=== PATIENT | female | born 1980 | race Caucasian/White ===

== ENCOUNTER 2018-02-10 08:01 | Day surgery (SDC) | payer OTHER, SELFPAY ==
[2018-02-06 15:49] VITALS: BMI 28.9
[2018-02-10] VITALS (8 sets, daily range): BP systolic 109–128; BP diastolic 66–84; PULSE 67–96; RESP 16–18; TEMP 36.2–36.8; O2SAT 93–100; BMI 28.9
--- NOTE | 2018-02-10 | PATH_ITS ---
[facility] Accession Number: [id number] . 01 Material submitted: . PART A: ENDOCERVICAL CURRETINGS PART B: ENDOMETRIAL CURRETINGS . 02 Diagnosis: A. Endocervix, Curettage: Endocervical mucosa with no evidence of neoplasia. . B. Endometrium, Biopsy: Secretory endometrium with no evidence of neoplasia or hyperplasia. Rare fragments suggestive of benign endometrial polyp are also present. I02/13/2018 . 02 Electronically signed: . Yuni Cheema MD, Pathologist NPI- [id number] . 01 Gross description: . Received two formalin-filled containers, both labeled with the patient's name: . A. In a container labeled endocervical curettings, the specimen consists of a less than 0.25 cc aggregate of mucoid material and blood, which is filtered, wrapped, and entirely submitted in cassette A. B. In a container labeled endometrial curettings, the specimen consists of approximately a 1.25 cc aggregate of mucoid material and blood, which is filtered, wrapped, and entirely submitted in cassette B. ([id number]) /FRR . 02 Pathologist provided ICD-10: N84.0 . 02 CPT . 692320, 567102 Performed at: 01 [facility] [address], [place], [place] [id number] MD Patel Garner MD Phone: [phone] Performed at: 02 [facility] [address] [place], [place] [id number] MD Ariel Ureña MD Phone: [phone]
[2018-02-10] MEDS: LACTATED RINGERS 1,000 ML 100 ML IV (09:00)
--- NOTE | 2018-02-10 09:11 | PM.PREOP ---
Pre-operative Note Interval Note Pre-op Check: Yes History & Physical Reviewed by Physician Changes: No
[2018-02-10] MEDS: CEFAZOLIN 2 GM/100 ML FROZ.PIGGY IV (09:25)
--- NOTE | 2018-02-10 09:46 | SUR.OPER ---
Lithotomy on padded OR bed, head on pillow, arms secured on padded arm boards at <90 degrees abduction. Legs secured in padded yellow fins stirrups.
[2018-02-10] MEDS: BUPIVACAINE 0.25% W/ EPI VIAL 50 ML INJ (10:07)
[2018-02-10] MEDS: fentaNYL 100 MCG/2 ML INJ 50 MCG IV ×4 (10:08→10:54)
--- NOTE | 2018-02-10 10:18 | PM.GYNOP.1 ---
Operative Date/Time/Diagnoses Date of procedure: 02/10/18 Time of procedure: 09:30 Pre-op diagnosis: Abnormal uterine bleeding, thickened endometrium Post-op diagnosis: same Procedure: Procedures Operation Date: 02/10/18 09:00 Actual Procedures Side Surgeon p Hysteroscopy D&C Smita Padron MD s Insertion of Mirena Smita Padron MD Indications: The patient is a 37-year-old 3 para 3 female here for hysteroscopy, dilation and curettage, possible polypectomy, and placement of a Mirena intrauterine device. Surgery is for evaluation and management of abnormal uterine bleeding with an ultrasound showing a thickened endometrium. Last menstrual period was 22 January, and she describes heavy cycles, during which she has to change large pads 5-6 times daily. She bleeds for 2 weeks and also has bleeding in between menses. She has severe dysmenorrhea that she describes similar to labor pains. She has always had heavy and painful menses menses, but they seem to have worsened over the past 3-4 months. She also has chronic burning lower abdominal pain over the areas of her ovaries. Pain occurs intermittently but lasts all day when present. She uses Motrin, Tylenol, and lidocaine patches to control pain. She denies any dyspareunia. Her evaluation for her bleeding consisted of a transvaginal ultrasound, which showed an endometrial stripe was 14 mm, which could be consistent with normal phase of her menstrual cycle versus polyps, hyperplasia, neoplasm, or blood. The ovaries were identified and appeared normal with the exception of a 1.3 cm ovoid cyst on the right ovary, consistent with likely a physiologic cyst. The evaluation and management options were reviewed with the patient, and following discussion, she opted to evaluate the endometrial cavity with hysteroscopy and dilatation curettage, then utilize a progestin intrauterine device for long-term management of menstrual and pelvic pain concerns. The risks, limitations, benefits, alternatives, and expectations of surgery were discussed, and the consent was reviewed and signed prior to the surgery. Surgeon: Smita Padron Anesthesia Type: General and Local (0.25 arcaine with epi) Operative Notes Findings: Exam under anesthesia: The uterus was approximately 7 weeks in size and anteverted. There are no palpable masses. Adnexa were not notably enlarged. Operative findings: The endometrial cavity overall appeared normal. The tubal ostia were seen bilaterally. There is a possible polypoid area of tissue at the left lower endometrial cavity. This was removed with dilation curettage. Closure Type: not applicable Specimen(s): endometrial curettings and other (Endocervical curettings) Applied: implant(s) (Mirena Intrauterine Device Lot # [id number], Exp date May 2020) Estimated blood loss (mL): 6 Blood products transfused: none Procedure in detail: The patient was taken to the operating room, where general anesthesia with LMA was administered without difficulty. She was then placed in the high dorsal lithotomy position with her lower extremities in Yellofin stirrups. Exam under anesthesia was then performed with the findings as noted above. Perineum and vagina were then prepped and draped in a sterile fashion, and in-and-out catheterization was performed. Procedure Time-Out was performed. A sterile bivalve speculum was then placed. The anterior lip of the cervix was then grasped with a single-toothed tenaculum. Local anesthetic using 0.25% Marcaine with epinephrine was then injected at the 2:00, 4:00, 7:00, and 10:00 positions for a paracervical block. Endocervical curettage was then performed. The cervix was then serially dilated until a 30-degree hysteroscope could be gently advanced to the uterine fundus. Using sterile saline for distention, the uterine cavity was visualized with the findings as noted above. Endometrial curettage was then performed on all 4 chapa of the uterus. A small amount of tissue was obtained and sent for pathology. The hysteroscope was then reintroduced to ensure the polypoid tissue was removed. The endometrial cavity appeared normal and free of polyps masses at that time. The hysteroscope was then removed, and the uterus was sounded to 9 cm. A Mirena intrauterine device, lot number [id number], expiration date May,, was then placed onto the field and inserted into the endometrial cavity without complications. The IUD strings were trimmed to 4 cm. The tenaculum was then removed, and the tenaculum sites hemostatic with gentle pressure with a sponge stick. At this point, the procedure was deemed complete. Sponge, lap, and needle count were correct x3. There were no complications. The patient was then taken to the recovery room in stable condition. Complications: none Post-operative Condition: stable Disposition: same day surgery Plan for aftercare: See discharge instruction.
--- NOTE | 2018-02-10 10:22 | P.OP_ITS ---
Operative Date/Time/Diagnoses Date of procedure: 02/10/18 Time of procedure: 09:30 Pre-op diagnosis: Abnormal uterine bleeding, thickened endometrium Post-op diagnosis: same Procedure: Procedures Operation Date: 02/10/18 09:00 Actual Procedures Side Surgeon p Hysteroscopy D&C Smita Padron MD s Insertion of Mirena Smita Padron MD Indications: The patient is a 37-year-old 3 para 3 female here for hysteroscopy, dilation and curettage, possible polypectomy, and placement of a Mirena intrauterine device. Surgery is for evaluation and management of abnormal uterine bleeding with an ultrasound showing a thickened endometrium. Last menstrual period was 22 January, and she describes heavy cycles, during which she has to change large pads 5-6 times daily. She bleeds for 2 weeks and also has bleeding in between menses. She has severe dysmenorrhea that she describes similar to labor pains. She has always had heavy and painful menses menses, but they seem to have worsened over the past 3-4 months. She also has chronic burning lower abdominal pain over the areas of her ovaries. Pain occurs intermittently but lasts all day when present. She uses Motrin, Tylenol, and lidocaine patches to control pain. She denies any dyspareunia. Her evaluation for her bleeding consisted of a transvaginal ultrasound, which showed an endometrial stripe was 14 mm, which could be consistent with normal phase of her menstrual cycle versus polyps, hyperplasia, neoplasm, or blood. The ovaries were identified and appeared normal with the exception of a 1.3 cm ovoid cyst on the right ovary, consistent with likely a physiologic cyst. The evaluation and management options were reviewed with the patient, and following discussion, she opted to evaluate the endometrial cavity with hysteroscopy and dilatation curettage, then utilize a progestin intrauterine device for long- term management of menstrual and pelvic pain concerns. The risks, limitations, benefits, alternatives, and expectations of surgery were discussed, and the consent was reviewed and signed prior to the surgery. Surgeon: Smita Padron Anesthesia Type: General and Local (0.25* arcaine with epi) Operative Notes Findings: Exam under anesthesia: The uterus was approximately 7 weeks in size and anteverted. There are no palpable masses. Adnexa were not notably enlarged. Operative findings: The endometrial cavity overall appeared normal. The tubal ostia were seen bilaterally. There is a possible polypoid area of tissue at the left lower endometrial cavity. This was removed with dilation curettage. Closure Type: not applicable Specimen(s): endometrial curettings and other (Endocervical curettings) Applied: implant(s) (Mirena Intrauterine Device Lot # [id number], Exp date May 2020 ) Estimated blood loss (mL): 6 Blood products transfused: none Procedure in detail: The patient was taken to the operating room, where general anesthesia with LMA was administered without difficulty. She was then placed in the high dorsal lithotomy position with her lower extremities in Yellofin stirrups. Exam under anesthesia was then performed with the findings as noted above. Perineum and vagina were then prepped and draped in a sterile fashion, and in-and-out catheterization was performed. Procedure Time-Out was performed. A sterile bivalve speculum was then placed. The anterior lip of the cervix was then grasped with a single-toothed tenaculum. Local anesthetic using 0.25% Marcaine with epinephrine was then injected at the 2:00, 4:00, 7:00, and 10:00 positions for a paracervical block. Endocervical curettage was then performed. The cervix was then serially dilated until a 30-degree hysteroscope could be gently advanced to the uterine fundus. Using sterile saline for distention, the uterine cavity was visualized with the findings as noted above. Endometrial curettage was then performed on all 4 chapa of the uterus. A small amount of tissue was obtained and sent for pathology. The hysteroscope was then reintroduced to ensure the polypoid tissue was removed. The endometrial cavity appeared normal and free of polyps masses at that time. The hysteroscope was then removed, and the uterus was sounded to 9 cm. A Mirena intrauterine device, lot number [id number], expiration date May,, was then placed onto the field and inserted into the endometrial cavity without complications. The IUD strings were trimmed to 4 cm. The tenaculum was then removed, and the tenaculum sites hemostatic with gentle pressure with a sponge stick. At this point, the procedure was deemed complete. Sponge, lap, and needle count were correct x3. There were no complications. The patient was then taken to the recovery room in stable condition. Complications: none Post-operative Condition: stable Disposition: same day surgery Plan for aftercare: See discharge instruction.
[2018-02-10] MEDS: OXYCODONE/ACETAMINOPHEN 5/325 TABLET 1 TAB PO (10:39)
== END 2018-02-10 11:40 | disposition home or self-care (01) ==
PROVIDERS: Visit Provider Obstetrics & Gynecology
PROC: 0UDB8ZZ Extraction of Endometrium, Via Natural or Artificial Opening Endoscopic (ICD-10-PCS; CPT 58558; principal; 2018-02-10 09:00)
PROC: (CPT 58558; 2018-02-10 09:00)
DX: N84.0 Polyp of corpus uteri (principal); N85.00 Endometrial hyperplasia, unspecified; Z30.430 Encounter for insertion of intrauterine contraceptive device
CPT/HCPCS: 58558; 58300; 88305; J0690; J1100; J2250; J2405; J2704; J3010

== ENCOUNTER 2018-05-18 12:19 | Emergency (ER) | payer OTHER, SELFPAY ==
[2018-05-18 12:31] VITALS: BP 132/84; PULSE 82; RESP 16; TEMP 36.8; O2SAT 100; BMI 29.2
--- NOTE | 2018-05-18 12:44 | DI.CT.S_ITS ---
PROCEDURE: CT MASTOID TEMPORAL INDICATIONS: pain over right mastoid, failed ABX tx, sent by COMPARISON: None. TECHNIQUE: Noncontrast 0.6 mm thick direct axial and coronal sections acquired through each temporal bone separately. FINDINGS: Image quality: Excellent. RIGHT: There is soft tissue layering debris along the posterior inferior aspect of the middle ear region layering in the length along the postsurgical defect of the mastoid air cells. The tympanic membrane is not visualized in its typical location. There is a serpiginous focus of linear soft tissue density identified somewhat inferior and posterior to the expected location. Soft tissue is present surrounding the ossicles. The ossicles appear poorly defined and likely demonstrate areas of erosion. There is a mildly blunted appearance of the scutum. Post surgical changes are present within the right mastoid air cells. Very minimal residual cells are opacified and sclerotic. LEFT: External auditory canal: Canal has a normal appearance. Middle ear: There is a mild appearance of soft tissue density adjacent to the ossicles within the epi tympanum. Morphology of the ossicles appears unremarkable. Tympanic membrane is of normal thickness. No definitive blunting of the scutum. Inner ear: Inner ear is normally formed and appears unremarkable. Facial nerve appears normal throughout its course. Mastoids: Mastoid air cells demonstrate sclerosis and opacification, as well as a suspected appearance of prior surgery. MISCELLANEOUS: Visualized surrounding bones appear unremarkable. Visualized intracranial structures, including the cerebellopontine angle cisterns, appear normal. There are prominent mucous retention cyst versus polyps partially visualized within the maxillary sinuses bilaterally. IMPRESSION: 1. There is soft tissue density along the posterior inferior aspect of the middle ear region, layering along the postsurgical defect of the mastoid air cells. While the tympanic membrane is not well visualized in the expected location, there is an adjacent area of serpiginous soft tissue and fluid, suspected to represent a ruptured tympanic membrane. 2. Extensive soft tissue density within the right epitympanum surrounding the ossicles with ill-defined ossicular morphology. While this could represent postoperative cellular debris, cholesteatoma cannot be excluded. 3. Mild appearance of soft tissue density without loss of ossicular morphology noted on the left. This could be sales representative malt liquors of cholesteatoma versus cellular debris. #4. Sclerotic and fluid filled appearance of the mastoid air cells. Dictated by: Angie Dawkins M.D. on 05/18/2018 at 13:34 Approved by: Angie Dawkins M.D. on 05/18/2018 at 13:57
--- NOTE | 2018-05-18 12:53 | ED_ITS ---
HPI - Ear Problem General Chief complaint: Ear Stated complaint: RT EAR INFECTION Time Seen by Provider: 05/18/18 12:30 Source: patient Mode of arrival: ambulatory Limitations: no limitations History of Present Illness HPI Narrative: 38-year-old current smoker presents with a chief complaint of right ear pain with drainage. She has had upper respiratory symptoms for the past 9 days and was seen over a week ago at another facility for right ear pain. She has an extensive ENT history with history of tympanostomy tubes, mastoid surgery and 80% hearing loss in her right ear which requires the use of hearing aids. She had had runny nose and cough and some right ear pain when she was seen. She was put on a Z-Umair to cover the possibility of otitis media. In the aftermath she developed increasing pain followed by drainage. She now has pain over her right mastoid and subjective fever. She denies any runny nose or sore throat. She has no cough. She was sent by her primary care provider for evaluation and the possibility of a CT of her mastoids and ENT consultation if needed MD Complaint: ear pain and ear discharge Location: right ear Duration: constant Severity: moderate Relieving factors: nothing Exacerbating factors: nothing Context: recent illness Discharge from ear: yes - purulent Associated symptoms ear: fever, headache and external ear tenderness Related Data Home Medications Medication Instructions Recorded Confirmed Vitamin D3 1 cap PO DAILY 05/18/18 05/18/18 iron 1 tab PO DAILY 05/18/18 05/18/18 varenicline [Chantix Starting 1 tab PO PER PKG DIR 05/18/18 05/18/18 Month Box] Previous Rx's Medication Instructions Recorded ciprofloxacin-dexamethasone 4 drop EAR-RIGHT BID #7.5 ml 05/18/18 [Ciprodex] levofloxacin [Levaquin] 500 mg PO DAILY #10 tab 05/18/18 Allergies Allergy/AdvReac Type Severity Reaction Status Date / Time Penicillins Allergy Severe Rash, Hives Verified 05/18/18 12:31 Review of Systems Review of Systems All systems reviewed & are unremarkable except as noted in HPI and below Constitutional Denies chills, Denies fever(s), Denies lethargy and Denies weakness Eyes Denies change in vision, Denies eye discharge, Denies irritation and Denies loss of vision ENT Ears, Nose, Mouth, and Throat: Denies change in voice, Reports ear discharge, Reports otalgia, Reports facial pain, Denies neck pain and Denies sore throat Cardiovascular Denies chest pain, Denies irregular heart rhythm, Denies lightheadedness, Denies palpitations, Denies dyspnea, Denies dyspnea on exertion and Denies orthopnea Respiratory Denies cough, Denies dyspnea, Denies dyspnea on exertion and Denies wheezing Gastrointestinal Gastrointestinal: Denies abdominal pain, Denies change in bowel habits, Denies diarrhea, Denies nausea and Denies vomiting Genitourinary Denies hematuria, Denies flank pain, Denies urinary incontinence and Denies urinary urgency Musculoskeletal Denies neck pain Integumentary/Breasts Denies pruritus, Denies erythema, Denies rash and Denies wounds Neurologic Denies confusion, Denies loss of vision and Denies weakness Psychiatric Denies anxiety, Denies confusion, Denies depression, Denies homicidal ideation and Denies suicidal ideation Endocrine Denies palpitations Hematologic/Lymphatic Denies easy bruising Allergic/Immunologic Denies wheezing PFSH Medical History Abnormal uterine bleeding (Acute) Chronic constipation (Acute) Depressed (Acute) Dysmenorrhea (Acute) Hearing loss (Acute) History of chemotherapy (Acute) History of methamphetamine use (Acute) History of migraine headaches (Acute) Ovarian cancer (Acute) Tobacco dependence (Acute) Surgical History H/O left knee surgery (Acute) History of tonsillectomy (Acute) History of tubal ligation (Acute) Social History household members: spouse and family Smoking Status: Current every day smoker Exam Narrative Exam Narrative: GEN: AOx3 and in mild distress, complaining of right ear pain EYES: Pupils are equal, round, and reactive to light and accommodation. Extraoccular muscles are intact bilaterally. There is no subconjunctival hemorrhage or exudate. ENT: no obvious TM rupture, drainage or purulence. No canal erythema, edema, drainage. CHEST: Lungs are clear to auscultation bilaterally and free of wheezes, rales, or rhonchi. Heart rate is regular rhythm, there are no murmurs, clicks, rubs, or gallops. There is no chest wall tenderness. ABD: Abdomen is soft and nontender. There is no guarding or rebound. Bowel sounds are normal in all 4 quadrants. There is no mass or organomegaly. EXT: Full painless ROM of all extremities with no loss of sensation or strength. SKIN: Warm, pink, and dry. No erythema or rash Initial Vital Signs Initial Vital Signs: Vital Signs Temperature 98.2 F 05/18/18 12:31 Pulse Rate 82 05/18/18 12:31 Respiratory Rate 16 05/18/18 12:31 Blood Pressure 132/84 05/18/18 12:31 Pulse Oximetry 100 05/18/18 12:31 Course Orders Ordered: ED Orders 05/18/18 12:44 CT mastoid temporal Stat Consultations Consultation #1: Discussed case with on-call ENT who has reviewed the CT images and recommend Ciprodex drops and fluoroquinolone oral. He would be happy to see the patient in follow-up but thinks that given her insurance she will need a referral. Vital Signs - 8 hr 05/18/18 12:31 05/18/18 14:53 Temperature 98.2 F Pulse Rate 82 70 Respiratory Rate 16 14 Blood Pressure 132/84 Blood Pressure [Left Arm] 132/70 Pulse Oximetry 100 99 Medical Decision Making Imaging Data Mastoid CT: Radiologist's impression: [address] [address] [address] Scan Report Signed Patient: Jayashree Lewis#: [id number] : 1980Acct:[id number] Age/Sex: 38 / FDate of Service: 05/18/18 Loc: ED Accession Number: [id number] Procedure: CT mastoid temporal Ordering Provider: Zia Michel D.O. PROCEDURE: CT MASTOID TEMPORAL INDICATIONS: pain over right mastoid, failed ABX tx, sent by COMPARISON: None. TECHNIQUE: Noncontrast 0.6 mm thick direct axial and coronal sections acquired through each temporal bone separately. FINDINGS: Image quality: Excellent. RIGHT: There is soft tissue layering debris along the posterior inferior aspect of the middle ear region layering in the length along the postsurgical defect of the mastoid air cells. The tympanic membrane is not visualized in its typical location. There is a serpiginous focus of linear soft tissue density identified somewhat inferior and posterior to the expected location. Soft tissue is present surrounding the ossicles. The ossicles appear poorly defined and likely demonstrate areas of erosion. There is a mildly blunted appearance of the scutum. Post surgical changes are present within the right mastoid air cells. Very minimal residual cells are opacified and sclerotic. LEFT: External auditory canal: Canal has a normal appearance. Middle ear: There is a mild appearance of soft tissue density adjacent to the ossicles within the epi tympanum. Morphology of the ossicles appears unremarkable. Tympanic membrane is of normal thickness. No definitive blunting of the scutum. Inner ear: Inner ear is normally formed and appears unremarkable. Facial nerve appears normal throughout its course. Mastoids: Mastoid air cells demonstrate sclerosis and opacification, as well as a suspected appearance of prior surgery. MISCELLANEOUS: Visualized surrounding bones appear unremarkable. Visualized intracranial structures, including the cerebellopontine angle cisterns, appear normal. There are prominent mucous retention cyst versus polyps partially visualized within the maxillary sinuses bilaterally. IMPRESSION: 1. There is soft tissue density along the posterior inferior aspect of the middle ear region, layering along the postsurgical defect of the mastoid air cells. While the tympanic membrane is not well visualized in the expected location, there is an adjacent area of serpiginous soft tissue and fluid, suspected to represent a ruptured tympanic membrane. 2. Extensive soft tissue density within the right epitympanum surrounding the ossicles with ill-defined ossicular morphology. While this could represent postoperative cellular debris, cholesteatoma cannot be excluded. 3. Mild appearance of soft tissue density without loss of ossicular morphology noted on the left. This could be business services sales representative of cholesteatoma versus cellular debris. #4. Sclerotic and fluid filled appearance of the mastoid air cells. Dictated by: Angie Dawkins M.D. on 05/18/2018 at 13:34 Approved by: Angie Dawkins M.D. on 05/18/2018 at 13:57 Discharge Plan Departure Patient Disposition: Home Clinical Impression: Acute mastoiditis Discharge Date/Time: 05/18/18 14:54 Interventions: ED Discharge Assessment Last Done: 05/18/18 14:54 Instructions: DI for Mastoiditis-Adult Activity Restrictions/Additional Instructions: *You have been diagnosed with [ acute right mastoiditis ] *What to do: *Take medications as directed *Follow up with Dr. Cabello with ear nose and throat, call for an appointment. Let them know you were seen in the Emergency Department and that we ask that you be seen in follow up. You may need a referral from your primary care provider *Return to ER if you should have any new, worsening or concerning symptoms Prescriptions: New levofloxacin [Levaquin] 500 mg tablet 500 mg PO DAILY Qty: 10 RF: 0 ciprofloxacin-dexamethasone [Ciprodex] 0.3-0.1 % drops,suspension 4 drop EAR-RIGHT BID Qty: 7.5 RF: 0 No Action varenicline [Chantix Starting Month Box] 0.5 mg (11)- 1 mg (42) Tablets,Dose Pack 1 tab PO PER PKG DIR RF: 0 Vitamin D3 1 cap PO DAILY RF: 0 iron 1 tab PO DAILY RF: 0 Referrals: Hernán Cabello MD [Physician] - Falguni Chavarria DO [Primary Care Provider] -
[2018-05-18 14:53] VITALS: BP 132/70; PULSE 70; RESP 14; O2SAT 99
== END 2018-05-18 14:54 | disposition home or self-care (01) ==
PROVIDERS: Emergency Provider Emergency Medicine; PCP Family Medicine
DX: H70.001 Acute mastoiditis without complications, right ear (principal)
CPT/HCPCS: 70480; 99282; 99283

== ENCOUNTER 2019-05-17 17:44 | Emergency (ER) | payer OTHER, SELFPAY ==
[2019-05-17 18:02] VITALS: BP 134/83; PULSE 81; RESP 15; TEMP 36.4; O2SAT 99; BMI 30.9
--- NOTE | 2019-05-17 18:29 | ED.UPPEXIN ---
HPI - Extremity Injury (Upper) General Chief Complaint: Extremity Injury, Upper Stated Complaint: Right shoulder pain since Aug Time Seen by Provider: 05/17/19 18:21 Source: patient Mode of arrival: Ambulatory Limitations: no limitations History of Present Illness HPI narrative: 39F former smoker presents with family for evaluation of ongoing right shoulder pain. She has been having this pain ever since August. She denies any new injury. She has pain with range of motion and improvement with rest. She denies any numbness, tingling or weakness. She has had x-rays which demonstrated no fracture. She has not had an MRI or any physical therapy. MD complaint: injury to: right Onset (ago): month(s) Other injuries: none Handedness: right Severity: moderate Relieving factors: rest Exacerbating factors: movement of extremity Associated symptoms: denies other symptoms Treatments prior to arrival: NSAIDS Related Data Home Medications Medication Instructions Recorded Confirmed Vitamin D3 1 cap PO DAILY 05/18/18 05/18/18 iron 1 tab PO DAILY 05/18/18 05/18/18 varenicline [Chantix Starting 1 tab PO PER PKG DIR 05/18/18 05/18/18 Month Box] Previous Rx's Medication Instructions Recorded ciprofloxacin-dexamethasone 4 drop EAR-RIGHT BID #7.5 ml 05/18/18 [Ciprodex] levofloxacin [Levaquin] 500 mg PO DAILY #10 tab 05/18/18 ketorolac 10 mg PO TID PRN #15 tab 05/17/19 Allergies Allergy/AdvReac Type Severity Reaction Status Date / Time Penicillins Allergy Severe Rash, Hives Verified 05/17/19 17:58 Review of Systems Constitutional Constitutional: Denies chills, Denies fatigue, Denies fever(s), Denies frequent falls, Denies lethargy and Denies weakness Eyes Eyes: Denies change in vision, Denies eye discharge, Denies irritation and Denies loss of vision ENT Ears, Nose, Mouth, and Throat: Denies change in voice, Denies dizziness, Denies neck pain, Denies sore throat and Denies throat swelling Cardiovascular Cardiovascular: Denies chest pain, Denies irregular heart rhythm, Denies lightheadedness, Denies palpitations, Denies dyspnea, Denies dyspnea on exertion and Denies orthopnea Respiratory Respiratory: Denies cough, Denies dyspnea, Denies dyspnea on exertion and Denies wheezing Gastrointestinal Gastrointestinal: Denies abdominal pain, Denies change in bowel habits, Denies diarrhea, Denies nausea and Denies vomiting Genitourinary Genitourinary: Denies hematuria, Denies flank pain, Denies urinary incontinence and Denies urinary urgency Musculoskeletal Musculoskeletal: Denies back pain, Reports limited range of motion, Denies muscle weakness, Denies neck pain, Denies numbness and Denies tingling Integumentary/Breasts Skin/Breast: Denies pruritus, Denies erythema, Denies rash and Denies wounds Neurologic Neurologic: Denies behavioral changes, Denies confusion, Denies dizziness, Denies frequent falls, Denies loss of vision, Denies numbness, Denies tingling and Denies weakness Psychiatric Psychiatric: Denies anxiety, Denies behavioral changes, Denies confusion, Denies depression, Denies homicidal ideation and Denies suicidal ideation Endocrine Endocrine: Denies fatigue, Denies flushing and Denies palpitations Hematologic/Lymphatic Hematologic/Lymphatic: Denies easy bruising Allergic/Immunologic Allergic/Immunologic: Denies urticaria, Denies throat swelling and Denies wheezing Patient History Medical History Abnormal uterine bleeding (Acute) Chronic constipation (Acute) Depressed (Acute) Dysmenorrhea (Acute) Hearing loss (Acute) History of chemotherapy (Acute) History of methamphetamine use (Acute) History of migraine headaches (Acute) Ovarian cancer (Acute) Tobacco dependence (Acute) Surgical History H/O left knee surgery (Acute) History of tonsillectomy (Acute) History of tubal ligation (Acute) Social History household members: spouse and family Smoking Status: Current every day smoker Exam Narrative Exam Narrative: GEN: AOx3 and in mild distress EYES: Pupils are equal, round, and reactive to light and accommodation. Extraoccular muscles are intact bilaterally. There is no subconjunctival hemorrhage or exudate. CHEST: Lungs are clear to auscultation bilaterally and free of wheezes, rales, or rhonchi. Heart rate is regular rhythm, there are no murmurs, clicks, rubs, or gallops. There is no chest wall tenderness. ABD: Abdomen is soft and nontender. There is no guarding or rebound. Bowel sounds are normal in all 4 quadrants. There is no mass or organomegaly. EXT: Full but painful range of motion of the right shoulder. Full strength and no numbness, tingling or weakness SKIN: Warm, pink, and dry. No erythema or rash Initial Vital Signs Initial Vital Signs: Vital Signs Temperature 97.5 F L 05/17/19 18:02 Pulse Rate 81 05/17/19 18:02 Respiratory Rate 15 05/17/19 18:02 Blood Pressure 134/83 05/17/19 18:02 Pulse Oximetry 99 05/17/19 18:02 Procedures Orthopedic Splinting/Casting Injury #1: Side: right Upper Extremity Injury Location: shoulder Upper Extremity Immobilizer: sling/shoulder immobilizer Post splinting neuro exam: intact Post splinting vascular exam: intact Placed by: Nursing Course Vital Signs Vital signs: Vital Signs - 8 hr 05/17/19 18:02 Temperature 97.5 F L Pulse Rate 81 Respiratory Rate 15 Blood Pressure 134/83 Pulse Oximetry 99 MDM - Extremity Injury (Upper) MDM Narrative Medical decision making narrative: Given chronicity of pain and no new injury nor indication of neurologic dysfunction there is no indication for imaging. Very low suspicion for bony abnormality, is most likely rotator cuff or labral injury. Discharge Plan Departure Patient Disposition: Home Clinical Impression: Injury of Upper Extremity Qualifiers: Encounter type: initial encounter Laterality: right Qualified Code(s): S49.91XA - Unspecified injury of right shoulder and upper arm, initial encounter Discharge Date/Time: 05/17/19 19:06 Activity Restrictions/Additional Instructions: *You have been diagnosed with [ Chronic Right Shoulder Pain ] *What to do: *Take medications as directed: do not combine this Toradol with other NSAIDs like motrin or alleve *Follow up with your primary care provider in 2-3 days, call for an appointment. Let them know you were seen in the Emergency Department and that we ask that you be seen in follow up. You will likely need an MRI or physical therapy. *Return to ER if you should have any new, worsening or concerning symptoms Prescriptions: New ketorolac 10 mg tablet 10 mg PO TID PRN (Reason: pain) Qty: 15 RF: 0 No Action varenicline [Chantix Starting Month Box] 0.5 mg (11)- 1 mg (42) Tablets,Dose Pack 1 tab PO PER PKG DIR RF: 0 Vitamin D3 1 cap PO DAILY RF: 0 iron 1 tab PO DAILY RF: 0 levofloxacin [Levaquin] 500 mg tablet 500 mg PO DAILY Qty: 10 RF: 0 ciprofloxacin-dexamethasone [Ciprodex] 0.3-0.1 % drops,suspension 4 drop EAR-RIGHT BID Qty: 7.5 RF: 0 Referrals: Falguni Chavarria DO [Primary Care Provider] -
--- NOTE | 2019-05-17 18:41 | PC.NURSE ---
right arm, posterior unable to reach scapular, ?rotator cuff injury.
== END 2019-05-17 19:06 | disposition home or self-care (01) ==
PROVIDERS: Emergency Provider Emergency Medicine; PCP Family Medicine
DX: S49.91XA Unspecified injury of right shoulder and upper arm, initial encounter (principal)
CPT/HCPCS: 99282

== ENCOUNTER 2020-08-16 12:49 | Emergency (ER) | payer OTHER, SELFPAY ==
[2020-08-16 12:50] VITALS: BP 132/100; PULSE 108; RESP 14; TEMP 36.6; O2SAT 99; BMI 29.6
--- NOTE | 2020-08-16 12:59 | ED.GENADULT ---
HPI - General Adult General Chief complaint: Ear Stated complaint: infection in hearing aide implant Time Seen by Provider: 08/16/20 12:51 Source: patient Mode of arrival: Ambulatory Limitations: no limitations History of Present Illness HPI narrative: 40-year-old female here for evaluation of which she thinks is an infection around her right-sided cochlear implant. She had the implant placed several years ago. Has not had any issues with a took couple weeks ago which she was seen in outside facility and diagnosed with a right-sided ear infection. She was placed on antibiotics since then she thinks the infection is not improved and now having redness around the implant has a comes through her skin. No fevers. No changes in her hearing. Related Data Home Medications Medication Instructions Recorded Confirmed Vitamin D3 1 cap PO DAILY 05/18/18 05/18/18 iron 1 tab PO DAILY 05/18/18 05/18/18 varenicline [Chantix Starting 1 tab PO PER PKG DIR 05/18/18 05/18/18 Month Box] Previous Rx's Medication Instructions Recorded ciprofloxacin-dexamethasone 4 drop EAR-RIGHT BID #7.5 ml 05/18/18 [Ciprodex] levofloxacin [Levaquin] 500 mg PO DAILY #10 tab 05/18/18 ketorolac 10 mg PO TID PRN #15 tab 05/17/19 doxycycline hyclate 100 mg PO BID 10 Days #20 tab 08/16/20 Allergies Allergy/AdvReac Type Severity Reaction Status Date / Time Penicillins Allergy Severe Rash, Hives Verified 08/16/20 12:54 Review of Systems Constitutional Constitutional: Denies fever(s) and Denies headache(s) ENT Ears, Nose, Mouth, and Throat: Denies vertigo, Denies dizziness, Denies ear discharge, Denies otalgia and Denies headache(s) Comments: No changes in hearing Cardiovascular Cardiovascular: Denies dyspnea Respiratory Respiratory: Denies cough and Denies dyspnea Integumentary/Breasts Comments: Redness around the cochlear implant side Neurologic Neurologic: Denies vertigo, Denies dizziness and Denies headache(s) Hematologic/Lymphatic On Anticoagulants: No Allergic/Immunologic Allergic/Immunologic: Denies urticaria Patient History Medical History (Updated 08/16/20 @ 13:53 by Guillermo Barfield DO) Abnormal uterine bleeding Chronic constipation Depressed Dysmenorrhea Hearing loss History of chemotherapy History of methamphetamine use History of migraine headaches Ovarian cancer Tobacco dependence Surgical History H/O left knee surgery History of tonsillectomy History of tubal ligation Social History household members: spouse and family Smoking Status: Current every day smoker Smoking Status: Current every day smoker alcohol intake frequency: a few times a week Substance Use Type: does not use Exam Initial Vital Signs Initial Vital Signs: Vital Signs Temperature 97.8 F 08/16/20 12:50 Pulse Rate 108 H 08/16/20 12:50 Respiratory Rate 14 08/16/20 12:50 Blood Pressure 132/100 H 08/16/20 12:50 Pulse Oximetry 99 08/16/20 12:50 Const General: cooperative and comfortable Limitations: mental status not altered HENMT Head: normal to inspection Ears: TM normal on the left and EAC abnormal cerumen impaction on the right Skin Other: Cochlear implant site posterior right ear with surrounding erythema what appears to be purely drainage. Extrem General: capillary refill normal Psych Appearance: grossly normal and well kempt Course Orders Ordered: Discontinued Medications Ibuprofen (Ibuprofen 400 Mg Tablet) 800 mg PO NOW ONE Stop: 08/16/20 13:50 Vital Signs Vital signs: Vital Signs - 8 hr 08/16/20 12:50 Temperature 97.8 F Pulse Rate 108 H Respiratory Rate 14 Blood Pressure 132/100 H Pulse Oximetry 99 Medical Decision Making MDM Narrative Medical decision making narrative: Had a discussion with the on-call ENT provider at [facility] which is where the patient had her implant placed. He stated that the patient does not have a cochlear implant she is centrally has a bone anchored hearing aid. He states that these types of implants to occasionally get infected however it is not as concerning as a cochlear implant infection. Patient has been on clindamycin for the past 10 days however her symptoms have not improved. She does have an allergy to penicillin. Plan will be is to send her home with doxycycline. There is no signs today that the implant is coming out. There are no findings concerning for an abscess. Patient is afebrile. Will plan abuse to switch her to doxycycline. She was instructed to contact her primary doctor to get another referral to see ENT in she was given instructions on returning to the emergency department for symptoms worsen. She expressed understanding and agreement. Discharge Plan Departure Patient Disposition: Home Clinical Impression: Cellulitis Instructions: DI for Cellulitis -- Adult Activity Restrictions/Additional Instructions: It does appear that the skin around your implant today has an infection. Since the antibiotic your currently taking does not seem to be helping the issue we will switch you to another medication. This medication was electronically transmitted to [facility]. Stop your current antibiotic and start taking this one as directed. Also recommend you contact your primary provider to discuss putting in a referral for you to see ear nose and throat again. Return to the emergency department for any new or worsening symptoms Prescriptions: New doxycycline hyclate 100 mg tablet 100 mg PO BID 10 Days Qty: 20 RF: 0 No Action varenicline [Chantix Starting Month Box] 0.5 mg (11)- 1 mg (42) Tablets,Dose Pack 1 tab PO PER PKG DIR RF: 0 Vitamin D3 1 cap PO DAILY RF: 0 iron 1 tab PO DAILY RF: 0 levofloxacin [Levaquin] 500 mg tablet 500 mg PO DAILY Qty: 10 RF: 0 ciprofloxacin-dexamethasone [Ciprodex] 0.3-0.1 % drops,suspension 4 drop EAR-RIGHT BID Qty: 7.5 RF: 0 ketorolac 10 mg tablet 10 mg PO TID PRN (Reason: pain) Qty: 15 RF: 0 Referrals: Falguni Chavarria DO [Primary Care Provider] -
--- NOTE | 2020-08-16 13:30 | PC.NURSE ---
Patient has a right ear cochlear implant red, swollen with purulent drainage. Patient started on oral antibiotics three weeks ago after visiting [facility], reports no relief with signs of infection. Reports low grade fevers at home.
[2020-08-16] MEDS: IBUPROFEN 400 MG TABLET 800 MG PO (13:55)
[2020-08-16 14:02] VITALS: BP 123/79; PULSE 89; RESP 16; O2SAT 100
== END 2020-08-16 14:02 | disposition home or self-care (01) ==
PROVIDERS: Emergency Provider Emergency Medicine; PCP Family Medicine
DX: H60.11 Cellulitis of right external ear (principal)
CPT/HCPCS: 99281

== ENCOUNTER 2020-09-26 17:27 | Emergency (ER) | payer OTHER, SELFPAY ==
[2020-09-26 17:33] VITALS: BP 137/95; PULSE 101; RESP 14; TEMP 36.9; O2SAT 99; BMI 28.3
--- NOTE | 2020-09-26 17:36 | DI.RAD.S_ITS ---
PROCEDURE: XR ANKLE RT MIN 3V INDICATIONS: right foot/ankle pain after falling through a pallet TECHNIQUE: 3 views of the ankle were acquired. COMPARISON: None. FINDINGS: Bones: No fractures or dislocations. Ankle mortise is normally aligned. No suspicious bony lesions. Soft tissues: No tibiotalar joint effusion. Achilles tendon appears normal. IMPRESSION: No acute ankle fracture or dislocation. Dictated by: Vance Restrepo M.D. on 09/26/2020 at 17:59 Approved by: Vance Restrepo M.D. on 09/26/2020 at 17:59
--- NOTE | 2020-09-26 17:36 | DI.RAD.S_ITS ---
PROCEDURE: XR FOOT RT MIN 3V INDICATIONS: right foot/ankle pain after falling through a pallet TECHNIQUE: 3 views of the foot were acquired. COMPARISON: None. FINDINGS: Bones: No fractures or dislocations. No suspicious bony lesions. Soft tissues: No tibiotalar joint effusion. Achilles tendon appears normal. IMPRESSION: No gross acute right foot fracture or dislocation. Dictated by: Vance Restrepo M.D. on 09/26/2020 at 17:59 Approved by: Vance Restrepo M.D. on 09/26/2020 at 18:00
--- NOTE | 2020-09-26 18:36 | ED_ITS ---
HPI - Extremity Injury (Lower) General Chief Complaint: Extremity Injury, Lower Stated Complaint: fall through pallet at work, right ankle injury Time Seen by Provider: 09/26/20 18:09 Source: patient Mode of arrival: Ambulatory Limitations: no limitations History of Present Illness HPI Narrative: 40-year-old female daily smoker without significant medical history presents with a work-related injury to her right ankle. She was walking on a wood Pallet and stepped on what she thought was a center support of the palate but was actually paper, in doing so her foot went through when she expected it to be supported, she rolled her ankle and now has some swelling and pain. Her pain is worse with ambulation and improves with rest. She denies any knee or hip pain. She denies any head neck or back injury. She denies any history of the same. MD complaint: ankle injury Onset (ago): hour(s) Injury: Right: ankle Type of Injury: inversion Place: work Severity: moderate Relieving factors: immobilization and rest Exacerbating factors: weight bearing, movement and palpation Context: fall Associated symptoms: swelling and able to partially bear weight Other symptoms: none Treatments prior to arrival: cold therapy Related Data Home Medications Medication Instructions Recorded Confirmed Vitamin D3 1 cap PO DAILY 05/18/18 05/18/18 iron 1 tab PO DAILY 05/18/18 05/18/18 varenicline [Chantix Starting 1 tab PO PER PKG DIR 05/18/18 05/18/18 Month Box] Previous Rx's Medication Instructions Recorded ciprofloxacin-dexamethasone 4 drop EAR-RIGHT BID #7.5 ml 05/18/18 [Ciprodex] levofloxacin [Levaquin] 500 mg PO DAILY #10 tab 05/18/18 ketorolac 10 mg PO TID PRN #15 tab 05/17/19 Allergies Allergy/AdvReac Type Severity Reaction Status Date / Time Penicillins Allergy Severe Rash, Hives Verified 09/26/20 17:33 Review of Systems Constitutional Constitutional: Denies chills, Denies fatigue, Denies fever(s), Denies frequent falls, Denies lethargy and Denies weakness Eyes Eyes: Denies change in vision, Denies eye discharge, Denies irritation and Denies loss of vision ENT Ears, Nose, Mouth, and Throat: Denies change in voice, Denies dizziness, Denies neck pain, Denies sore throat and Denies throat swelling Cardiovascular Cardiovascular: Denies chest pain, Denies irregular heart rhythm, Denies lightheadedness, Denies palpitations, Denies dyspnea, Denies dyspnea on exertion and Denies orthopnea Respiratory Respiratory: Denies cough, Denies dyspnea, Denies dyspnea on exertion and Denies wheezing Gastrointestinal Gastrointestinal: Denies abdominal pain, Denies change in bowel habits, Denies diarrhea, Denies nausea and Denies vomiting Musculoskeletal Musculoskeletal: Reports arthralgias, Reports limited range of motion, Denies neck pain and Denies numbness Integumentary/Breasts Skin/Breast: Denies pruritus, Denies erythema, Denies rash and Denies wounds Neurologic Neurologic: Denies behavioral changes, Denies confusion, Denies dizziness, Denies frequent falls, Denies loss of vision, Denies numbness and Denies weakness Psychiatric Psychiatric: Denies anxiety, Denies behavioral changes, Denies confusion, Denies depression, Denies homicidal ideation and Denies suicidal ideation Endocrine Endocrine: Denies fatigue, Denies flushing and Denies palpitations Hematologic/Lymphatic Hematologic/Lymphatic: Denies easy bruising Allergic/Immunologic Allergic/Immunologic: Denies urticaria, Denies throat swelling and Denies wheezing Patient History Medical History Abnormal uterine bleeding Chronic constipation Depressed Dysmenorrhea Hearing loss History of chemotherapy History of methamphetamine use History of migraine headaches Ovarian cancer Tobacco dependence Surgical History H/O left knee surgery History of tonsillectomy History of tubal ligation Social History household members: spouse and family Smoking Status: Current every day smoker Smoking Status: Current every day smoker alcohol intake frequency: holidays/special occasions only Substance Use Type: does not use Exam Narrative Exam Narrative: GEN: AOx3 and in mild distress EYES: Pupils are equal, round, and reactive to light and accommodation. Extraoccular muscles are intact bilaterally. There is no subconjunctival hemorrhage or exudate. CHEST: Lungs are clear to auscultation bilaterally and free of wheezes, rales, or rhonchi. Heart rate is regular rhythm, there are no murmurs, clicks, rubs, or gallops. There is no chest wall tenderness. ABD: Abdomen is soft and nontender. There is no guarding or rebound. Bowel sounds are normal in all 4 quadrants. There is no mass or organomegaly. EXT: Full but painful range of motion of right ankle with tenderness in the posterior aspect of ankle. No deformity, closed, isolated and neurovascularly intact SKIN: Warm, pink, and dry. No erythema or rash Initial Vital Signs Initial Vital Signs: Vital Signs Temperature 98.5 F 09/26/20 17:33 Pulse Rate 101 H 09/26/20 17:33 Respiratory Rate 14 09/26/20 17:33 Blood Pressure 137/95 H 09/26/20 17:33 Pulse Oximetry 99 09/26/20 17:33 Procedures Orthopedic Splinting/Casting Injury #1: Side: right Lower Extremity Injury Location: ankle Lower Extremity Immobilizer: boot orthosis Post splinting neuro exam: intact Post splinting vascular exam: intact Placed by: Nursing Course Orders Ordered: ED Orders 09/26/20 17:36 XR ankle RT min 3V Stat XR foot RT min 3V Stat Vital Signs Vital signs: Vital Signs - 8 hr 09/26/20 17:33 09/26/20 19:55 09/26/20 19:56 Temperature 98.5 F Pulse Rate 101 H 71 72 Respiratory Rate 14 Blood Pressure 137/95 H 141/87 H 125/75 Pulse Oximetry 99 99 97 09/26/20 21:22 Temperature Pulse Rate 86 Respiratory Rate 12 Blood Pressure 135/87 Pulse Oximetry 98 MDM - Extremity Injury (Lower) Imaging Data Extremity x-ray #1: Radiologist's Impression: Jayashree Lewis 40 F [address] [id number] ReportSigned Patient: Jayashree LewisMR#: [id number]: 1980Acct:[id number]/Sex: 40 / FDate of Service: 09/26/20Loc: EDAccession Number: [id number] Procedure: XR foot RT min 3V Ordering Provider: Guillermo Barfield D.O. PROCEDURE: XR FOOT RT MIN 3V INDICATIONS: right foot/ankle pain after falling through a pallet TECHNIQUE: 3 views of the foot were acquired. COMPARISON: None. FINDINGS: Bones: No fractures or dislocations. No suspicious bony lesions. Soft tissues: No tibiotalar joint effusion. Achilles tendon appears normal. IMPRESSION: No gross acute right foot fracture or dislocation. Dictated by: Vance Restrepo M.D. on 09/26/2020 at 17:59 Approved by: Vance Restrepo M.D. on 09/26/2020 at 18:00 Extremity x-ray #2: Radiologist's Impression: Jayashree Lewis 40 F [address] [id number] ReportSigned Patient: Jayashree LewisMR#: [id number]: 1980Acct:[id number]/Sex: 40 / FDate of Service: 09/26/20Loc: EDAccession Number: [id number] Procedure: XR ankle RT min 3V Ordering Provider: Guillermo Barfield D.O. PROCEDURE: XR ANKLE RT MIN 3V INDICATIONS: right foot/ankle pain after falling through a pallet TECHNIQUE: 3 views of the ankle were acquired. COMPARISON: None. FINDINGS: Bones: No fractures or dislocations. Ankle mortise is normally aligned. No suspicious bony lesions. Soft tissues: No tibiotalar joint effusion. Achilles tendon appears normal. IMPRESSION: No acute ankle fracture or dislocation. Dictated by: Vance Restrepo M.D. on 09/26/2020 at 17:59 Approved by: Vance Restrepo M.D. on 09/26/2020 at 17:59 Discharge Plan Departure Patient Disposition: Home Clinical Impression: Sprain and strain of ankle Instructions: DI for Ankle Sprain Activity Restrictions/Additional Instructions: *You have been diagnosed with [right ankle sprain, x-rays very reassuring and shows no fracture or dislocation] *What to do: *Take medications as directed: Tylenol or Motrin for aches and pains *Follow up with your primary care provider in 2-3 days, call for an appointment. Let them know you were seen in the Emergency Department and that we ask that you be seen in follow up *Return to ER if you should have any new, worsening or concerning symptoms, such as [increasing pain, fever over 101 F or other bothersome symptoms] Prescriptions: No Action varenicline [Chantix Starting Month Box] 0.5 mg (11)- 1 mg (42) Tablets,Dose Pack 1 tab PO PER PKG DIR RF: 0 Vitamin D3 1 cap PO DAILY RF: 0 iron 1 tab PO DAILY RF: 0 levofloxacin [Levaquin] 500 mg tablet 500 mg PO DAILY Qty: 10 RF: 0 ciprofloxacin-dexamethasone [Ciprodex] 0.3-0.1 % drops,suspension 4 drop EAR-RIGHT BID Qty: 7.5 RF: 0 ketorolac 10 mg tablet 10 mg PO TID PRN (Reason: pain) Qty: 15 RF: 0 Referrals: Falguni Chavarria DO [Primary Care Provider] -
[2020-09-26 19:55] VITALS: BP 141/87; PULSE 71; O2SAT 99
[2020-09-26 19:56] VITALS: BP 125/75; PULSE 72; O2SAT 97
[2020-09-26 21:22] VITALS: BP 135/87; PULSE 86; RESP 12; O2SAT 98
== END 2020-09-26 21:23 | disposition home or self-care (01) ==
PROVIDERS: Emergency Provider Emergency Medicine; PCP Family Medicine
DX: S93.401A Sprain of unspecified ligament of right ankle, initial encounter (principal); S96.911A Strain of unspecified muscle and tendon at ankle and foot level, right foot, initial encounter; X50.1XXA Overexertion from prolonged static or awkward postures, initial encounter; Y99.0 Civilian activity done for income or pay
CPT/HCPCS: 73610; 73630; 99282; 99283

== ENCOUNTER → 2021-09-25 14:11 | Outpatient (CLI) | payer OTHER, SELFPAY ==
--- NOTE | 2021-09-25 14:13 | DI.MG.S_ITS ---
BILATERAL DIGITAL SCREENING MAMMOGRAM 3D/2D WITH CAD: 09/25/2021 CLINICAL: Baseline Exam. Routine screening. No prior exams were available for comparison. The tissue of both breasts is heterogeneously dense. This may lower the sensitivity of mammography. Current study was also evaluated with a Computer Aided Detection (CAD) system. No significant masses, calcifications, or other findings are seen in either breast. IMPRESSION: NEGATIVE There is no mammographic evidence of malignancy. A 1 year screening mammogram is recommended. This exam was interpreted at Station ID: [id number]. NOTE: For mammograms, a report in lay terms will be sent to the patient. Approximately 15% of breast malignancies will not be visualized mammographically. In the management of a palpable breast mass, a negative mammogram must not discourage biopsy of a clinically suspicious lesion. Electronically Signed By: Alex Aguayo acr/winston:09/25/2021 15:22:16 letter sent: Normal Exam ACR BI-RADS Category 1: Negative [id number]
== END ==
PROVIDERS: PCP Family Medicine; Referring Provider Family Medicine; Visit Provider Family Medicine
DX: Z12.31 Encounter for screening mammogram for malignant neoplasm of breast (principal)
CPT/HCPCS: 77063; 77067